=== PATIENT | male | born 1940 | race Caucasian/White ===

== ENCOUNTER 2016-08-19 10:06 | Day surgery (SDC) | payer MEDICARE, BC ==
[~2016-08-19] VITALS: Ht 185.4 cm; Wt 102.1 kg
[~2016-08-19 10:06] MED LIST: ACETAMINOPHEN &1 TA1 PO; ALLERGY10 MG PO; BACTRIM DS 8001 TA1 PO; DOXYCYCLINE100 M1 PO; HYDROCHLOROTH12.5 M1 PO; LASIX40 MG PO; LISINOPRIL5 MG PO; TRIAMCINOL15 GM/TUBE TP
[2016-08-19 10:30] VITALS: BP 151/108
[2016-08-19 10:33] VITALS: BP 151/108
[2016-08-19 11:01] VITALS: BP 163/124
--- NOTE | 2016-08-19 11:02 | Pain Management SOAP Note ---
SOAP Note Pain Clinic Subjective: Mr. Dumont presents to our procedure area today for medial branch blocks lumbar L3-4, L4-5, L5-S1. Preprocedurally his blood pressure is consistent with diastolic pressures over 100. Patient states he did not take his blood pressure medicine today. We will reschedule him. I suggest to the patient he gets his medicine adjusted by his PCP. at 1102
== END 2016-08-19 11:01 | disposition home or self-care (01) ==
LOC: PM 10:06
DX: I10 Essential (primary) hypertension (principal)

== ENCOUNTER 2016-10-08 15:19 | Emergency (ER) | payer MEDICARE, BC ==
[~2016-10-08] VITALS: Ht 185.4 cm; Wt 113.4 kg
[2016-10-08] MEDS ORDERED: ACETAMINOPHEN-H1 TA1 PO (15:29)
[2016-10-08] MEDS ORDERED: HYDROCHLOROTHIA25 M1 PO (15:30)
--- NOTE | 2016-10-08 15:35 | Emergency Room Report ---
History of Present Illness Time Seen by [email or web address] Presenting Problem in Triage Pt arrived:Walked Presenting Problem:LEFT FOOT INJURY FROM WEED EATER Onset of symptoms date/time:/ or onset unknown for:MEDICAL HX UNKNOWN Treatment Prior to Arrival: MANAGER OFFICE Provided by: Sepsis Risk Assessment: Temp: 97.8 B/P: 154/99 MAP: 117 Pulse: 89 Resp: 18 Recent fever? N Clinical Suspician of Infection? N Mental Status: 1 - Regular (Normal Baseline) Sepsis Risk:Low Sepsis Risk Have you (or family members/close friends) recently traveled outside the [place]? N If Yes, where/when: Have you had exposure to infectious disease within the past month? TB? Other? Specify: Comment The patient complains of a laceration to his LEFT foot. He was using a weed eater with a metal/plastic blade when the blade hit a rock and broke off and a piece of it impaled into his LEFT foot, through his athletic shoe. He had to remove the foreign body, extracting it from the shoe and foot before he could get his shoe off. Last tetanus immunization is unknown. He does not think there is any retained foreign body. He denies numbness or weakness. ALLERGIES Coded Allergies: No Known Allergies (10/08/16) Home Medications Reported Medications HYDROCODONE/ACETAMINOPHEN (Hydrocodon-Acetaminophn 10-325) 1 TAB PO DAILY #120 HYDROCHLOROTHIAZIDE (Hydrochlorothiazide) 25 MG PO DAILY #30 HYDROCODONE/ACETAMINOPHEN (Hydrocodon-Acetaminophn 10-325) 1 TAB PO QID PRN BACK PAIN Hydrochlorothiazide (Hydrochlorothiazide 12.5MG) 25 MG PO DAILY History Medical History General CAD? No Angina: No [place]: No Hypertension? Yes Hyperlipidemia? No CHF? No DVT? No PE? No COPD? No Asthma? No Anemia? No GERD? No Gastric ulcers? No GI Bleed? No Hernia? No Thyroid Problems? No Hypothyroidism? No CVA? No Seizures? No Diabetes? No Renal Insuffiency? No End Stage Renal Disease? No UTI? No Stones? No BPH? No GB Disease: No Nephritic Syndrome? No Asplenia? No Hepatitis? No Sickle Cell Disease? No Arthritis? No Migraines? No Cataracts? No Glaucoma? No MRSA? No HIV? No TB? No Anxiety? No Depression? No Cancer? No More? No Immunization Hx Ped.Immunizations UTD Yes DT/Tetanus Unknown Flu 2013-14FSN Pneumonia Received In Past Surgical Hx Previous Surgery?Y Hernia Repair IMPLANTS FOR DENTURES FOOT SURGERY Family History Family Hx Diabetes No CAD No Hypertension Yes Hyperlipidemia No Cancer Yes TB No Social History Smoking Hx Smoker: Never Smoker Tobacco: No Type N/A Packs/day N/A Alcohol Alcohol: No Review of Systems All Other Systems Reviewed and Negative Constitutional denies fever Skin see HPI Psychiatric/Neurological denies numbness, denies weakness Physical Exam Vital Signs Vital Signs Date Time Temp Pulse Resp B/P Pulse O2 O2 Flow FiO2 Ox Delivery Rate 10/08 1525 97.8 89 18 154/99 98 General Appearance labored breathing, 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 Respiratory Status No: respiratory distress. Cardiovascular normal peripheral pulses Extremities 4 cm v-shaped laceration of dorsum of LEFT foot between the second and third toes extending down to the web space between the toes., on exploration no deep structure injury seen. The patient has chronically deformed toes with flexion deformity. He has difficulty extending all of his toes, which she says is chronic. However, they are of equal strength throughout., normal capillary refill, sensation, and warmth. Neurologic no motor/sensory deficits Medical Decision Making LABS/Meds/Orders Pt receiving controlled substance in ED? No Results/Orders Current Medication Orders Sig/Laurie Start time Last Medication Dose Route Stop Time Status Admin Diphtheria/Pertussis/ 0 .STK-MED ONE 10/08 1604 DC Tetanus Vacc IM Cephalexin 0 .STK-MED ONE 10/08 1603 DC Monohydrate PO Cephalexin 500 MG ONCE ONE 10/08 1545 DC Monohydrate PO 10/08 1546 Tetanus/Diphtheria 0.5 ML ONCE ONE 10/08 1545 DC Toxoids Adsorbed IM 10/08 1546 Lidocaine HCl 20 ML ONCE ONE 10/08 1530 DC IJ 10/08 1531 Lidocaine HCl 0 .STK-MED ONE 10/08 1529 DC .ROUTE Orders Procedure Date/time Status FOOT-LT-3 VIEWS 10/08 1532 Active XRAY/CT/US XRAY/CT/US XRAY foot Comment Interpreted by Reinaldo Drake MD. Negative for fracture, dislocation, or foreign body. Procedures Laceration/Wound Repair Progress Laceration Repair Performed by: REINALDO DRAKE Consent: Verbal consent obtained. Risks and benefits: risks, benefits and alternatives were discussed Consent given by: patient Patient identity confirmed: verbally with patient Laceration location: Foot Laceration length: 4 cm Local anesthetic: 1 percent lidocaine plain Wound prep: Sterilly scrubbed with Hibiclens and irrigated with copious normal saline. Draping: Sterile in usual manner Patient sedated: no Debridement: minimal Exploration: Small piece of thread present in the wound which was removed. No other foreign bodies. No tendon injury seen. No joint penetration. Layers Closed: Skin Suture material: 5-0 Prolene Number of sutures: 8 Repair complexity: Simple Patient tolerance: Patient tolerated the procedure well with no immediate complications Departure Departure Disposition DC Home or Self Care(routine) Clinical Impression Primary Impression: Laceration of left foot Qualifiers: Encounter type: initial encounter Qualified Code: S91.312A - Laceration without foreign body, left foot, initial encounter Condition STABLE Referrals Chandan Brennan MD (Family) Patient Instructions DI for Laceration Repair Additional Instructions Additional instructions for LACERATION: Clean the wound daily with soap and water. You may shower and apply a bandage after showering. Avoid submerging the wound, no swimming. See your primary care physician or return in 10 days for suture removal. Return if any signs of infection including increasing pain, pus drainage, swelling, redness, red streaks, or fever. Prescriptions Current Visit Scripts Cephalexin (Keflex 500MG) 500 MG PO TID #30 CAP ED Critical Care Critical Care No at 1610
[2016-10-08] MEDS ORDERED: KEFLEX500 M1 PO (16:07)
[2016-10-08 16:18] VITALS: BP 154/99
--- NOTE | 2016-10-08 16:42 | RADIOLOGY REPORT PS360 ---
FOOT-LT-3 VIEWS HISTORY: Laceration with active bleeding, evaluate for foreign body r/o fb ORDERING PHYSICIAN: Reinaldo Torres MD PATIENT AGE: 76 years COMPARISON: None FINDINGS: There is moderate hallux valgus with lateral subluxation of the proximal phalanx of the first digit by approximately 6 mm. 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 No radio opaque foreign body apparent. No fracture or dislocation. Flexion deformity of the second and third digits. IMPRESSION: Hallux valgus. No acute fracture or radio opaque foreign body
== END 2016-10-08 16:18 | disposition home or self-care (01) ==
LOC: ER 15:19
PROC: 0HQNXZZ Repair Left Foot Skin, External Approach (ICD-10-PCS; principal; 2016-10-08)
DX: S91.312A Laceration without foreign body, left foot, initial encounter (principal); Z23 Encounter for immunization

== ENCOUNTER → 2017-06-15 | Outpatient (CLI) | payer MEDICARE, BC ==
[~2017-06-15] MED LIST changes: +ACETAMINOPHEN-H1 TA1 PO; +HYDROCHLOROTHIA25 M1 PO; +KEFLEX500 M1 PO
--- NOTE | 2017-06-15 17:15 | RADIOLOGY REPORT PS360 ---
ABDOMEN-FLAT UPRIGHT Ordering Physician: Chandan Brennan MD Patient Age: 77 years: Male HISTORY: LEFT UPPER QUAD PAIN left upper quadrant TECHNIQUE: Flat and upright abdomen COMPARISON : CT abdomen August 2014 FINDINGS Prominent pronounced elevation left hemidiaphragm. The diaphragm extends above the level of the left jayla. This is seen on the previous CT abdomen August 2014. Right lung base limited but clear the mediastinum and heart are shifted to the right due to the changes of the elevated left hemidiaphragm. Similar pattern was seen on 2014 CT.No bowel obstruction evident. No free air Generous stool is seen at the right colon with minimal stool and gas throughout the remainder the colon. No bowel dilatation or obstruction otherwise evident. Degenerative facet changes L5/S1. No free air appreciated on this distorted abdomen. In addition be significant concern regarding acute abdomen CT would be warranted IMPRESSION: --------- Very prominent elevation left hemidiaphragm as was seen on the prior CT abdomen study August 2014. . stomach and splenic flexure of the colon extending superiorly along with left crys- diaphragm Nonspecific bowel gas pattern otherwise. Moderate to generous stool right colon with minimal stool remainder the colon. Additional note. The stomach is stretched upwards, beneath this elevated left hemidiaphragm, but does not appear to be distended or obviously rotated.
== END ==
LOC: RAD 11:26
DX: R10.12 Left upper quadrant pain (principal)